=== PATIENT | female | born 1970 ===

== ENCOUNTER 2020-08-04 08:10 | Day surgery (SDC) | payer OTHER ==
[~2020-08-04 08:10] MED LIST: ATIVAN0.5 M1; COZAAR50 MG; ESTAZOLAM2 MG; INVOKANA300 MG; SYNTHROID75 MCG; TRAZODONE
== END 2020-08-04 20:25 | disposition home or self-care (01) ==
LOC: CIR.AMB 08:10
PROVIDERS: ATTEND Colon & Rectal Surgery
DX: K62.0 Anal polyp (principal); K64.4 Residual hemorrhoidal skin tags; Z20.828 Contact with and (suspected) exposure to other viral communicable diseases
CPT/HCPCS: 45171; 46260; 96372; J3301

== ENCOUNTER 2020-08-10 08:10 | Emergency (ER) | payer OTHER ==
[~2020-08-10] VITALS: Ht 167.6 cm; Wt 74.4 kg
[2020-08-10] MEDS ORDERED: SKELAXIN800 MG PO (10:40)
== END 2020-08-10 10:43 ==
LOC: ER 08:10
DX: S13.8XXA Sprain of joints and ligaments of other parts of neck, initial encounter (principal); S10.83XS Contusion of other specified part of neck, sequela; K62.89 Other specified diseases of anus and rectum; W18.09XS Striking against other object with subsequent fall, sequela

== ENCOUNTER → 2020-08-23 | Outpatient (CLI) | payer OTHER ==
[~2020-08-23] MED LIST changes: +SKELAXIN800 MG PO
== END | disposition home or self-care (01) ==
LOC: MRI 11:15
PROVIDERS: ATTEND Colon & Rectal Surgery
DX: M54.5 Low back pain (principal)
CPT/HCPCS: 72141; 72146; 72148

== ENCOUNTER 2020-09-07 07:12 | Outpatient (CLI) | payer OTHER | END 2020-09-07 08:57 | disposition home or self-care (01) | LOC: LAB 07:12 | DX: Z20.828 Contact with and (suspected) exposure to other viral communicable diseases (principal); Z11.59 Encounter for screening for other viral diseases ==

== ENCOUNTER → 2020-09-27 11:58 | Outpatient (CLI) | payer OTHER ==
[~2020-09-27 11:58] MED LIST changes: +TIZANIDINE HCL2 M1 PO
== END | disposition home or self-care (01) ==
LOC: LAB 11:58
PROVIDERS: ATTEND Physical Medicine & Rehabilitation
DX: Z20.828 Contact with and (suspected) exposure to other viral communicable diseases (principal); Z11.59 Encounter for screening for other viral diseases